=== PATIENT | female | born 1995 | race Caucasian/White ===

== ENCOUNTER 2025-05-01 14:15 | Outpatient (CLI) | payer BC, OTHER, SELFPAY ==
[2025-05-01 15:05] LABS: Hematocrit 37.7 % (37.0-47.0); Hemoglobin 12.3 g/dL (12.0-15.0); Mean Corpuscular HGB Conc 32.6 g/dl (32-36); Mean Corpuscular Hemoglobin 26.6 pg (26-34); Mean Corpuscular Volume 81.6 fl (80-100); Platelet Count Result 283 k/mm3 (150-375); Red Blood Count 4.62 M/mm3 (4.2-5.4); White Blood Count 8.9 K/mm3 (4.5-10.0)
[2025-05-01 15:14] LABS: Add Urine Microscopic? YES; Appearance Urine Clear (Clear); Glucose Urine UA Negative (Negative); Leukocyte Esterase Ur 2+ LEU/UL (Negative); Nitrate Urine Negative (Negative); Non Pathogenic Casts 0-2; Specific Grav Ur 1.031 (1.001-1.035)
[2025-05-01 15:19] LABS: Alanine Aminotransferase 14 U/L (6-35); Albumin Level 4.4 g/dL (3.5-5.1); Alkaline Phosphatase 61 U/L (38-126); Aspartate Amino Transferase 21 U/L (14-36); Bilirubin,Total 0.4 mg/dL (0.2-1.3); Total Protein 8.3 g/dL (6.3-8.2)
[2025-05-01 15:48] LABS: Syphilis IgG/IgM Antibody Non-Reactive (Nonreactive)
[2025-05-01 15:56] LABS: Thyroid Stimulating Hormone 2.440 uIU/mL (0.465-4.680)
[2025-05-01 16:02] LABS: HIV 1/2 Ab P24 Ag Result Negative (Negative)
[2025-05-01 16:48] LABS: Hepatitis B Surface Antigen Negative (Negative)
--- OUTSIDE RECORDS SUMMARY | 2025-05-01 18:54 | XMS_ITS | Encounter Summary ---
Author Organization [facility] Address [address] [place] [address] Care Team Providers Care Knife Finisher Name Role Phone Constance Boykin MD Primary Care Provider [phone] Encounter Details Date Type Department Care Team (Late st Contact Info) Description 04/08/2021 Lab Requisition [facility] [address] [place] [address] Carolyn Paiz MD Social History Tobacco Use Types Packs/Day Years Used Date Smoking Tobacco: Never Assessed Comments Unknown Sex and Gender Information Value Date Recorded Sex Assigned at Not on file Legal Sex Female 2:24 PM COOKER TENDER Gender Identity Not on file Sexual Orientation Not on file documented as of this encounter Plan of Treatment Not on file documented as of this encounter Procedures Procedure Name Priority Date/Time Associated Diagnosis Comments HCG BETA BLOOD QUANTITATIVE Routine 04/08/2021 1:46 PM COOKER TENDER documented in this encounter Results * HCG BETA BLOOD QUANTITATIVE (04/08/2021 1:46 PM COOKER TENDER) hCG Quantitative 2,785.66 mIU/mL 04/08/20 3:07 PM COOKER TENDER [facility] Blood BLOOD SPECIMEN / Unknown Venipuncture / Unknown 04/08/2021 1:46 PM COOKER TENDER 04/08/2021 2:25 PM COOKER TENDER Narrative [facility] - 04/08/2021 3:07 PM COOKER TENDER hCG Reference Range, mIU/mL: Males 0-2.0 Non Females 0-6.0 Perimenopausal Females ages 41-55* 0-7.7 Postmenopausal Females age >55* 0-14 Females, Weeks after Last Menstrual Period 0.2-1 week 5-50 1 - 2 weeks 50-500 2 - 3 weeks 100-5000 3 - 4 weeks 500-10,000 4 - 5 weeks 1000-50,000 5 - 6 weeks 10,000-100,000 6 - 8 weeks 15,000-200,000 2 - 3 months 10,000-100,000 Trophoblastic Disease >100,000 *In higher than expected hCG in females > age 40, a serum FSH >20 IU/L makes unlikely. Carolyn Paiz MD LAB - CHEMISTRY ORDERABLES Final Result Performing Organization Address City/State/[facility] Co de Phone Number [facility] [address] [place], [place] [phone] documented in this encounter Visit Diagnoses Not on filedocumented in this encounter Care Teams Knife Finisher Relationship Specialty Start Date End Date Constance Boykin MD [address] [facility] [address] [place] [phone] PCP - General 12/22/21 documented as of this encounter
--- OUTSIDE RECORDS SUMMARY | 2025-05-01 18:55 | XMS_ITS | Clinical Summary ---
Author Organization [facility] Address [address] [place] [address] Care Team Providers Care Log Sawyer Name Role Phone Constance Boykin MD Primary Care Provider [phone] Source Comments [facility],non-owned Affiliates and Associated Physician Practices is amultiple site organization consisting of ambulatory clinics and hospital sitesin [place], [place], [place] and [place]. This disclosure is being madepursuant to the Care Everywhere program and may not contain all information available regarding this patient. 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 MARKETING SYSTEMS MANAGER Gender Identity Not on file Sexual Orientation Not on file Plan of Treatment Health Maintenance Due Date Last Done Comments HIV SCREENING 10/26/2010 HEPATITIS C SCREENING 10/22/2013 DTAP/TDAP/TD VACCINES (1 - Tdap) 10/26/2014 HEPATITIS B VACCINE (1 of 3 - 19+ 3-dose series) 10/26/2014 HPV VACCINE (1 - 3-dose SCDM series) 10/26/2022 DEPRESSION SCREENING 05/23/2024 COVID-19 VACCINE (1 - 2024-2 6 season) 2025 INFLUENZA VACCINE (#1) 2025 ZOSTER VACCINE (1 of 2) 10/26/2045 HIB VACCINE Aged Out No longer eligi ble based on patient's age to complete this topic MENINGOCOCCAL (Group B) VACC INE SHARED DECISION-MAKING Aged Out No longer eligibl e based on patient's age to complete this topic MENINGOCOCCAL GROUPS A/C/Y/W VACCINE Aged Out No longer eligible b ased on patient's age to complete this topic PNEUMOCOCCAL VACCINE Aged Out No long er eligible based on patient's age to complete this topic Insurance [employer] Care Teams Log Sawyer Relationship Specialty Start Date End Date Constance Boykin MD [address] [phone] PCP - General 12/22/21
--- OUTSIDE RECORDS SUMMARY | 2025-05-01 18:55 | XMS_ITS | Clinical Summary ---
Author Organization [facility] Care Team Providers Care Finished Yarn Examiner Name Role Phone Unavailable Primary Care Provider Unavailabl e Social History Tobacco Use Types Packs/Day Years Used Date Smoking Tobacco: Never Assessed Comments Unknown Sex and Gender Information Value Date Recorded Sex Assigned at Not on file Legal Sex Female 2:47 PM CDT Gender Identity Not on file Sexual Orientation Not on file Plan of Treatment Health Maintenance Due Date Last Done Comments Hepatitis C Virus (HCV) Screening 1995 TdaP Immunization 1995 Hepatitis B Immunization (1 of 3 - 19+ 3-dose series) 10/26/2014 Human Papillomavirus (HPV) Immunization (1 - 3-dose SCDM series) 10/26/2022 Influenza Immunization (#1) 2025 SARS-COV-2 Immunization ( season) 2025 02/10/2021, 01/19/2021 Respiratory Syncytial Virus (RSV) Immunization (Adult) (1 - 1-dose 75+ series) 10/26/2070 Meningococcal Immunization (ACWY) Aged Out No longer eligible b ased on patient's age to complete this topic Pneumococcal Immunization Combined Aged Out No longer eligible b ased on patient's age to complete this topic Rotavirus Immunization Aged Out No lo nger eligible based on patient's age to complete this topic
[2025-05-02 07:09] LABS: Varicella-Zoster Ab, IgG Reactive (Non Reactive)
== END 2025-05-01 14:16 | disposition home or self-care (01) ==
PROVIDERS: Visit Provider Obstetrics & Gynecology
DX: Z34.90 Encounter for supervision of normal pregnancy, unspecified, unspecified trimester (principal); Z3A.00 Weeks of gestation of pregnancy not specified
CPT/HCPCS: 36415; 80076; 81001; 83020; 84443; 85027; 85660; 86593; 86703; 86762; 86787; 86803; 86850; 86900; 86901; 87086; 87340; G0432